=== PATIENT | male | born 1965 | race Caucasian/White ===

== ENCOUNTER 2016-07-15 17:35 | Emergency (ER) | payer BC ==
--- OUTSIDE RECORDS SUMMARY | 2016-07-15 17:57 | XMS REPORT | Continuity of Care Document ---
:1965 Author Organization [facility] ([facility]) Address [address] [place] [address] Phone [phone] Care Team Providers Name Role Phone Request, Removed At Provider Primary Care Provider Unavailable Source Comments This disclosure is being made pursuant to the Care Everywhere program, applicable federal and state laws, and may not contain all informaitonavailable regarding this patient.[facility] ([facility]) Active Allergies and Adverse Reactions No Known Allergies Current Medications Prescription Sig. Disp. Refills Start Date End Date Status polyethylene Take as directed 1 Container 0 01/11/2011 Active glycol-electrolyte the evening prior (GOLYTELY) suspension to procedure. Indications: Bowel Evacuation GUAIFENESIN/D-METHORP Take 20 mL by Active ANDREW HB/PE (ROBITUSSIN mouth 2 times COUGH & COLD CF PO) daily. docusate 100 mg Take 1 Cap by 60 Cap 3 01/29/2011 Active capsule mouth 2 times daily. Indications: Constipation, to keep stools soft and while on pain meds HYDROmorphone 4 mg Take 1-1.5 Tabs 100 Tab 0 01/29/2011 Active tablet by mouth every 4 hours as needed (4 mg for pain scale 1-5, 6 mg for pain scale 6-10). Indications: Pain sennosides 8.6 mg Take 1-2 Tabs by 60 Tab 3 01/29/2011 Active tablet mouth daily. Indications: Constipation, to keep stools soft and while on oral pain medication Active Problems Problem Noted Date Diverticulitis 02/03/2011 Ventral hernia 02/03/2011 Social History Tobacco Use Types Packs/Day Years Used Date Never Smoker Alcohol Use Drinks/Week oz/Week Comments No Last Filed Vital Signs Vital Sign Reading Time Taken Blood Pressure 132/91 01/30/2011 12:00 PM [employer] Pulse 88 01/30/2011 12:00 PM [employer] Temperature 37.1 C (98.8 F) 01/30/2011 12:00 PM [employer] Respiratory Rate 16 01/30/2011 12:00 PM [employer] Height 1.727 m (5' 8") 01/26/2011 9:25 PM [employer] Weight 90.719 kg (200 lb) 01/30/2011 9:50 AM [employer] Body Mass Index 30.42 01/30/2011 9:50 AM [employer] Oxygen Saturation 95% 01/30/2011 12:00 PM [employer] Plan of Care Health Maintenance Due Date Last Done Comments Hepatitis B Vaccine (1 of 3 - Primary Series) 1965 Tdap Vaccine 04/20/1978 Lipid Disorder Screening 04/20/1985 MMR Vaccine 04/20/1985 Td Vaccine 04/20/1985 Influenza Vaccine: Seasonal (#1) 09/22/2015 Results from Last 3 Months Not on file
--- NOTE | 2016-07-15 18:10 | ERNOTE ---
Abdominal HPI - General Chief Complaint: Abdominal Pain Time Seen by Provider: 07/15/16 17:52 Source: patient Exam Limitations: no limitations - Immun/Allergies/Home Medications Immunizatons: IMMUNIZATION HX Immunizations Up to Date Yes History of Influenza Vaccine No Hx Pneumococcal Vaccination No Allergies/Adverse Reactions: Allergies No Known Allergies Allergy (Verified 07/15/16 17:48) Home Medications: HOME MEDICATIONS Lactobacillus Rhamnosus GG [Culturelle] 1 tab PO DAILY 07/15/16 [Last Taken Unknown] Losartan/Hydrochlorothiazide [Losartan-Hctz 50-12.5 mg Tab] 1 each PO DAILY [Last Taken Unknown] - History of Present Illness Narrative: Patient has a past of abdominal problem. After recurrent episodes of diverticulitis he had a bowel perforation in 2010, had a resection with colostomy, reversal six month later and a couple of surgeries for incisional hernias. After that he has not had any abdominal problems. He has soda for breakfast and was snacking on a potato, later at work he started to have sudden periumbilical pain. He get episodes of severe pain that lasts two minutes and then goes back to a mild baseline pain, no radiation, no associated symptoms, no aggravating or alleviating factors, mild pain currently Date (Duration): 07/15/16 Time (Timing): 10:00 Timing: intermittent Modifying Factors - (Improves): Absent: defecating, eating Modifying Factors - (Worsens): Absent: breathing, eating, movement Associated Symptoms: Present: denies symptoms Prior Abdominal Problems: Present: other. Absent: recent trauma Prior Treatment: Absent: recently seen, currently on antibiotics Review of Systems - Review of Systems Constitutional: Absent: recent illness, fever ENT: Absent: nose congestion, sore throat Respiratory: Absent: shortness of breath Cardiology: Absent: chest pain Gastrointestinal/Abdominal: Present: See HPI, abdominal pain. Absent: nausea, vomiting, diarrhea Genitourinary: Present: no symptoms reported Musculoskeletal: Absent: back pain Neurological: Absent: headache, weakness, numbness - Patient's Past Medical History Patient History - Medical: Other Patient History - Cardiac/Respiratory: Hypertension, Hyperlipidemia Patient History - Cancer: No Hx of Cancer Patient History - Surgical Procedures: Colonoscopy, Other Patient History - Other: None - Social History Living Situations: home Abuse History: No History of abuse Psych History: No pertinent hx Smoking Status: Never smoker Alcohol Use: none Drug Use: none - Immunizations Immunizations Up to Date: Yes Hx Pneumococcal Vaccination: No History of Influenza Vaccine: No Physical Exam - Physical Exam General Appearance: Present: wd/wn, alert, no apparent distress Respiratory: Present: no respiratory distress, normal breath sounds, no accessory muscle use, lungs clear Cardiovascular/Chest: Present: regular rate, rhythm, no murmur Gastrointestinal/Abdominal: Present: normal bowel sounds, nontender, nondistended, soft Back Exam: Present: no CVA tenderness Extremity Exam: Present: no edema Neurological Exam: Present: alert, oriented, normal mood/affect Skin Exam: Present: normal color, warm/dry ED Progress - Results and Orders Patient's Lab Results:: I have reviewed the patient's lab results. - Vital Signs Patient's Vital Signs:: I have reviewed the patient's vital signs. Vital Signs: Vital Signs 07/15/16 17:42 Temperature 36.8 C Pulse Rate 81 Respiratory 16 Rate Blood Pressure 131/81 O2 Sat by Pulse 95 Oximetry - X-Ray X-Ray #1 X-Ray: abdomen - normal gas pattern, fair amount of stool Interpretation: Interp. by me - Progress/Reassessment Chief Complaint: Abdominal Pain Progress Note-Subjective: 07/15/16 18:55 discussed results with patient and family, had one brief pain spell while here, symptoms and test results make constipation most likely diagnosis, cannot completely rule out other etiology, discussed indications for returning to the ER Departure - Departure Clinical Impression: Abdominal pain Qualifiers: Abdominal location: periumbilical Qualified Code(s): R10.33 - Periumbilical pain Constipation Qualifiers: Constipation type: unspecified constipation type Qualified Code(s): K59.00 - Constipation, unspecified Disposition: Home self-care Condition: Good Instructions: Abdominal Pain, Adult, [id number], Constipation, Adult, Easy-to -Read Additional Instructions: take over the counter medication for constipation like miralax and senokot, if at any time your pain does not resolve after a few minutes or you get additional symptoms like vomiting return to the ER, at that point you might need a CT otherwise call your doctor for follow up Referrals: Alida Fisher FNP [Primary Care Provider] -
[2016-07-15 18:26] LABS: Hematocrit 43.7 % (42.0-52.0); Hemoglobin 15.2 gm/dL (13.5-18.0); Mean Cell Volume 82.9 fl (78-100); Mean Corpuscular Hemoglobin 28.8 pg (27-31); Mean Corpuscular Hgb Conc 34.8 g/dl (32-36); Mean Platelet Volume 10.5 fl (6.0-9.5); Neutrophil # 7.6 K/mm3 (1.3-6.0); Neutrophil % 72.4 % (42-75.0); Platelet Count 282 K/mm3 (150-450); Red Blood Count 5.27 M/mm3 (4.7-6.0); Red Cell Distribution Width 12.9 % (11.5-14.0); White Blood Count 10.5 K/mm3 (4.0-10.5)
[2016-07-15 18:31] LABS: Urine Bilirubin Negative (NEGATIVE); Urine Blood Negative /ul (NEGATIVE); Urine Ketone Negative (NEGATIVE); Urine Nitrite Negative (NEGATIVE); Urine Protein Negative (NEGATIVE); Urine Specific Gravity 1.025 SP.GR. (1.005-1.030); Urine Urobilinogen Normal (NORMAL)
[2016-07-15 18:40] LABS: Urine Appearance Clear; Urine Bacteria TRACE; Urine Color Yellow; Urine RBC None Seen /hpf (0-5); Urine WBC 0-5 /hpf (0-5)
[2016-07-15 18:42] LABS: Albumin * 4.1 gm/dl (3.4-5.0); Anion Gap 10.7 mmol/L (6.8-13.8); BUN/Creatinine Ratio 16.2 (9.0-21.6); Bilirubin, Total 1.1 mg/dL (0.0-1.1); Ca. Corrected For Albumin 9.1 mg/dL (8.4-10.2); Calcium * 9.5 mg/dL (7.9-10.9); Potassium 3.7 mmol/L (3.4-4.6); Total Protein 7.9 gm/dL (6.2-8.2)
[2016-07-15 19:15] VITALS: BP 126/92
== END 2016-07-15 19:08 | disposition home or self-care (01) ==
LOC: ER 17:35
DX: K59.00 Constipation, unspecified (principal); R10.33 Periumbilical pain; I10 Essential (primary) hypertension